=== PATIENT | male | born 1985 | race Caucasian/White ===

== ENCOUNTER 2017-02-18 10:51 | Emergency (ER) | payer OTHER ==
[~2017-02-18 10:51] MED LIST: CIPRO PO; CLEOCIN PO; FLOMAX0.4 M1 PO; HYDROXYZINE HCL25 M1 PO; LORTAB 5/500 TA1 TA1 PO; MEDROL DOSEPAK4 MG PO; NO MEDICATIONS; NORVASC PO; PERCOCET 5-3251 TAB PO; PHENERGAN25 M1 PO; VICODIN 5/500 T1 TAB PO
== END 2017-02-18 10:57 | disposition home or self-care (01) ==
LOC: CFTX 10:51
DX: H66.92 Otitis media, unspecified, left ear (principal); F17.210 Nicotine dependence, cigarettes, uncomplicated; Z88.8 Allergy status to other drugs, medicaments and biological substances
CPT/HCPCS: 99283